=== PATIENT | male | born 1995 | race Caucasian/White ===

== ENCOUNTER 2024-08-08 09:28 | Outpatient (CLI) | payer BC, SELFPAY | END 2024-08-08 09:29 | disposition home or self-care (01) | LOC: NFLDREF 08-12 02:46 | PROVIDERS: PCP Family Medicine; Referring Provider Family Medicine; Visit Provider Family Medicine | DX: E78.5 Hyperlipidemia, unspecified (principal); I10 Essential (primary) hypertension | CPT/HCPCS: 80053; 80061 ==